=== PATIENT | female | born 1985 | race African-American/Black ===

== ENCOUNTER 2021-05-19 11:31 | Outpatient (REF) | payer OTHER, SELFPAY ==
[2021-05-19 13:57] LABS: Hemoglobin 13.6 g/dl (12.0-16.0); Mean Corpuscular HGB Conc 33.2 g/dl (31.0-35.0); Mean Corpuscular Hemoglobin 31.5 pg (27.0-33.0); Mean Corpuscular Volume 94.9 fL (80-98); Mean Platelet Volume 10.3 fL (9.4-12.3); Platelet Count 227 X10*3/uL (160-400); Red Blood Count 4.32 X10*6/uL (4.20-5.50); Red Cell Distribution Width 12.5 % (11.0-16.0); White Blood Count 3.8 X10*3/uL (4.8-10.8)
[2021-05-19 14:13] LABS: Alanine Aminotransferase 13 U/L (0-31); Alkaline Phosphatase 43 U/L (39-117); Anion Gap 11 (12-20); Aspartate Amino Transferase 14 U/L (5-31); Bilirubin Total 0.3 mg/dL (0.0-1.0); Blood Urea Nitrogen 7 mg/dL (9-16); Calcium 9.1 mg/dL (8.4-10.2); Carbon Dioxide 27 mmol/L (22-29); Chloride 106 mmol/L (96-108); Cholesterol 213 mg/dL; Estimated Glomerular Filt Rate > 60; Glucose Random 74 mg/dL (60-115); HDL Cholesterol 62 mg/dL; Iron 72 mcg/dL (30-160); LDL Cholesterol Calculated 136 mg/dl; Percent Iron Saturation 27 % (15-50); Potassium 4.5 mmol/L (3.3-5.1); Sodium 139 mmol/L (135-145); Total Iron Binding Capacity 269 mcg/dL (228-428); Total Protein 7.3 g/dL (6.5-8.0); Triglycerides 75 mg/dL; Unsaturated Iron Binding 197 ug/dL
[2021-05-19 14:35] LABS: TSH reflex Free T4 0.41 uIU/mL (0.32-4.0)
== END 2021-05-19 11:32 | disposition home or self-care (01) ==
LOC: HO.HMGCLDS 11:31
PROVIDERS: PCP Internal Medicine; Visit Provider Internal Medicine
DX: Z00.00 Encounter for general adult medical examination without abnormal findings (principal)
CPT/HCPCS: 36415; 80053; 80061; 83540; 84443; 85027

== ENCOUNTER 2021-08-25 13:10 | Outpatient (REF) | payer OTHER, SELFPAY ==
--- NOTE | ~2021-08-25 | XR_ITS ---
EXAMINATION: XR HAND, LEFT CLINICAL INFORMATION: Pain COMPARISON: None TECHNIQUE: PA, lateral, and oblique views of the left hand. FINDINGS: Bone alignment is normal. No fracture or dislocation is seen. Joint spaces are normal. There is focal soft tissue swelling over the dorsal hand at the level of the LONG-TERM joints. Soft tissues are otherwise normal. XR/XR hand LT min 3V IMPRESSION: Dorsal soft tissue swelling otherwise unremarkable exam.
== END 2021-08-25 13:11 | disposition home or self-care (01) ==
LOC: HO.HOSX 13:10
PROVIDERS: PCP Internal Medicine; Visit Provider Orthopaedic Surgery
DX: M67.432 Ganglion, left wrist (principal)
CPT/HCPCS: 73130; 99202

== ENCOUNTER 2021-09-07 07:49 | Day surgery (SDC) | payer OTHER, SELFPAY ==
--- NOTE | 2021-09-04 09:13 | HO.ANESPROP2 ---
Documented by User: Elena Dunham NP 09/04/21 09:14 HPI - Anesthesia Eval Consult details Narrative: 36yo F for Left Excision wrist Ganglion and excision of metacarpal boss PMFSH Active Problems Active Problems: All Active Problems (Updated 07/23/21 @ 11:21 by Kiera Guzman MD) Ganglion cyst of dorsum of left wrist (Acute) Normal Pap smear (Acute) Annual physical exam (Acute) Past Medical History Medical History Annual physical exam Carpal tunnel syndrome of right wrist Ganglion cyst of dorsum of left wrist Normal Pap smear Family History Family History Father Hypertension Mother Aneurysm Hypertension Surgical History Surgical History History of surgical removal of ganglion cyst Social History Social History (Updated 08/25/21 @ 13:31 by Renae Arenas) Housing: House Alcohol intake: never Patient Tobacco Use Status: Never used Tobacco e-Cigarette/Vaping Use: Never Used Second Hand Smoke Exposure: No Use of substances other than those prescribed or required for medical reasons: No Cultural Healthcare Practices: refusing blood products Are you DNR?: No Advance Directives: Yes Advance Directives on File: Yes Advance Directives Date on File: 09/07/21 Recently lost weight without trying: No Nutrition Risks: No Nutritional Risk service: No Current occupational status: employed Current occupation: rt hand Meds Allergies Allergy/AdvReac Type Severity Reaction Status Date / Time cyanocobalamin (vitamin B12) Allergy hives Verified 08/25/21 13:31 oxycodone Allergy shaking Verified 08/25/21 13:31 hives palpitation Home Medications Medication Instructions Recorded Confirmed Last Taken Type No Known Home Meds 05/19/21 05/19/21 Unknown History Exam Exam Date and Time: September 04, 2021 0913 Pertinent Lab Results Pertinent Lab Results: Laboratory Tests 05/19/21 05/19/21 11:40 11:40 WBC 3.8 L Hgb 13.6 Hct 41.0 Plt Count 227 Sodium 139 Potassium 4.5 Chloride 106 Carbon Dioxide 27 BUN 7 L Creatinine 0.82 Assessment and Plan Assessment Anesthesia Assessment: Chart Reviewed Documented by User: Margy Interiano MD 09/07/21 09:33 PMF Active Problems Active Problems: All Active Problems (Updated 07/23/21 @ 11:21 by Kiera Guzman MD) Ganglion cyst of dorsum of left wrist (Acute) Normal Pap smear (Acute) Annual physical exam (Acute) Neck injury about 2 weeks ago- still a little sore. No problems with extension Past Medical History Medical History Annual physical exam Carpal tunnel syndrome of right wrist Ganglion cyst of dorsum of left wrist Normal Pap smear Family History Family History Father Hypertension Mother Aneurysm Hypertension Family history of problems with anesthesia: No Surgical History Surgical History History of surgical removal of ganglion cyst History of Problems with Anesthesia: No Social History Social History (Updated 08/25/21 @ 13:31 by Renae Arenas) Housing: House Alcohol intake: never Patient Tobacco Use Status: Never used Tobacco e-Cigarette/Vaping Use: Never Used Second Hand Smoke Exposure: No Use of substances other than those prescribed or required for medical reasons: No Cultural Healthcare Practices: refusing blood products Are you DNR?: No Advance Directives: Yes Advance Directives on File: Yes Advance Directives Date on File: 09/07/21 Recently lost weight without trying: No Nutrition Risks: No Nutritional Risk service: No Current occupational status: employed Current occupation: rt hand Meds Allergies Allergy/AdvReac Type Severity Reaction Status Date / Time cyanocobalamin (vitamin B12) Allergy hives Verified 08/25/21 13:31 oxycodone Allergy shaking Verified 08/25/21 13:31 hives palpitation Home Medications Medication Instructions Recorded Confirmed Last Taken Type No Known Home Meds 05/19/21 05/19/21 Unknown History Exam Height,Weight and Vital Signs: Height 5 ft 2 in Weight 61.689 kg Vital Signs Temp Pulse Resp BP Pulse Ox 09/07/21 08:14 97.4 F 63 16 146/87 H 98 Pertinent Lab Results Pertinent Lab Results: Laboratory Tests 05/19/21 05/19/21 11:40 11:40 WBC 3.8 L Hgb 13.6 Hct 41.0 Plt Count 227 Sodium 139 Potassium 4.5 Chloride 106 Carbon Dioxide 27 BUN 7 L Creatinine 0.82 Lab Results 09/07/21 Range/Units 08:01 Urine Test NEGATIVE (NEGATIVE) Airway Mallampati Class: II TM Dist: >3cm Neck ROM: Full Heart: RRR Lungs: CTAB Assessment and Plan Assessment Anesthesia Assessment: Anesthesia Plan Discussed Final Anesthetic Review Family History of Problems with Anesthesia: No History of Problems with Anesthesia: No NPO: Yes ASA Class: I Final Preanesthetic Review: No Changes in Pt Med Stat, Meds/Allgs Chart Reviewed, Consent Obtained/Reviewed and Anes Risks/Benef Reviewed Patient Risk: Low Procedure Risk: Low Anesthetic Plan Anesthetic Plan: GA Disposition: Standard PACU
[2021-09-07] VITALS (8 sets, daily range): BP systolic 134–153; BP diastolic 70–87; PULSE 56–82; RESP 16; TEMP 36.2–36.3; O2SAT 98–100; BMI 24.8
[2021-09-07 08:17] LABS: UPreg QC Valid YES; Urine Pregnancy NEGATIVE (NEGATIVE)
[2021-09-07] MEDS: Lactated Ringers 1,000 ML 100 ML IVCONT (08:27)
--- NOTE | 2021-09-07 09:35 | MHC.SHP ---
Pre-Procedural Eval Section A Date of Service: 09/07/21 The patient is an INPATIENT: No Changes since office visit: No Cold of Flu in the past 2 weeks, No New Medical Problems, No Changes in Medication and No Patient answered all questions The History & Physical has been completed within 30 days and I have reviewed it.: Yes Section B Chief Complaint: ganglion Allergies: Allergies Allergy/AdvReac Type Severity Reaction Status Date / Time cyanocobalamin (vitamin B12) Allergy hives Verified 08/25/21 13:31 oxycodone Allergy shaking Verified 08/25/21 13:31 hives palpitation Plan I have reviewed the history and physical and performed a pertinent physical examination on my patient. No changes have occurred unless specified.
--- NOTE | 2021-09-07 09:36 | W.PM.OPN ---
Operative Note Operative Note Date of Service: 09/07/21 Narrative: Operative Note Narrative: Preop diagnosis: 1. Left recurrent dorsal wrist ganglion 2. Left 3rd metacarpal boss Postop diagnosis: Same Procedure: 1. Left dorsal wrist ganglion excisional biopsy 2. Excision 3rd metacarpal boss from dorsal base of the 3rd metacarpal Surgeon: Traci Reis MD Anesthesia: Mac Findings: Left dorsal wrist ganglion approximately 1 cm in diameter, filled with clear viscous fluid consistent with a ganglion. The ganglion was sitting atop of the 3rd metacarpal boss after excision of the ganglion, the EDC tendon to the index finger was noted to be passing over the 3rd metacarpal boss. Tourniquet time: 20 minutes EBL: 5.0 ml Specimen: Left dorsal wrist ganglion Drains: None Complications: None Disposition: Brought to the recovery room in stable condition Plan: Follow-up in 10-14 days for wound check, suture removal and to check pathology Indications: The patient is a 36 year old woman with a left recurrent dorsal wrist ganglion and a 3rd metacarpal boss that has been unresponsive to nonoperative management. The risks and benefits of operative treatment, including but not limited to risk of damage to blood vessels, nerves, tendons, infection, recurrence, persistent pain or numbness, or need for further surgery were discussed with the patient and they wished to proceed with surgery. Procedure: Once consent was obtained patient was brought back to the operating suite and placed in the operating table in a supine position. Perioperative antibiotics and anesthesia was administered by the anesthesia team. A tourniquet was applied to the proximal aspect of the left upper extremity and the limb was prepped and draped in a standard surgical fashion. The limb was elevated exsanguinated with Esmarch bandage and the tourniquet inflated to 250 mm of mercury for a total tourniquet time of 20 minutes. A 2 cm longitudinal incision was made over the dorsal aspect of the left 2nd/3rd CMC joint in line with the previous incision and centered over the dorsal wrist ganglion. Ganglion was located directly over the left 3rd metacarpal boss The incision was made with a #15 blade through the skin to the subcutaneous tissues. Tenotomy scissors were then used to carefully dissect down through the subcutaneous layer to the dorsal wrist ganglion. It measured approximately 1.0 cm in diameter , was situated directly on top of the 3rd metacarpal boss and was filled with clear viscous fluid consistent with a ganglion. The ECR be tendon was carefully retracted radially, and the ganglion was mobilized from the surrounding soft tissues using tenotomy and iris scissors. The ganglion was cut free and removed to the back table to be sent for histopathologic review. At this point the 3rd metacarpal boss was evaluated. The EDC tendon to the index finger was noted to be passing directly over the 3rd metacarpal boss. I then made a longitudinal incision in the dorsal ligament 0 capsular layer. This allowed me to then remove the bony prominence using a rongeur. Once satisfied with the improvement to the bony prominence the wound was irrigated with normal saline and I closed the dorsal capsuloligamentous later with some 4-0 Vicryl. At this point the tourniquet was deflated and hemostasis obtained with a brief period of local pressure and monopolar electrocautery. Wound was irrigated with normal saline. The subcutaneous layer was closed with some 4-0 Vicryl suture, and the skin edges were reapproximated a running 4-0 Monocryl subcuticular closure to reduce likelihood of keloid scar, noted from previous incision. Steri-Strips and Mastisol were applied. The wound was infiltrated with some 1% lidocaine with epinephrine for postop pain control and a sterile dressing was applied. The patient appears to have tolerated the procedure well and with no complications. All digits were well vascularized conclusion of the case.
== END 2021-09-07 12:18 ==
LOC: HO.SSS 07:50
PROVIDERS: Nurse Practitioner; PCP Internal Medicine; Visit Provider Orthopaedic Surgery
PROC: (CPT 25112; principal; 2021-09-07 09:10)
DX: M67.432 Ganglion, left wrist (principal); M24.142 Other articular cartilage disorders, left hand
CPT/HCPCS: 25112; 26230; 81025; 88304; J0690; J1100; J1885; J2250; J2405; J3010

== ENCOUNTER → 2021-09-16 15:07 | Outpatient (BNVA) | payer OTHER, SELFPAY | PROVIDERS: Visit Provider Orthopaedic Surgery | DX: M67.432 Ganglion, left wrist (principal); M25.732 Osteophyte, left wrist | CPT/HCPCS: 99212 ==

== ENCOUNTER → 2021-10-28 13:50 | Outpatient (BNVA) | payer OTHER, SELFPAY | PROVIDERS: PCP Internal Medicine; Visit Provider Orthopaedic Surgery | DX: M67.432 Ganglion, left wrist (principal); M25.732 Osteophyte, left wrist | CPT/HCPCS: 99212 ==

== ENCOUNTER → 2021-12-09 15:18 | Outpatient (BNVA) | payer OTHER, SELFPAY | PROVIDERS: PCP Internal Medicine; Referring Provider Internal Medicine; Visit Provider Surgery | DX: K40.90 Unilateral inguinal hernia, without obstruction or gangrene, not specified as recurrent (principal) | CPT/HCPCS: 99202 ==

== ENCOUNTER 2022-01-29 09:31 | Day surgery (SDC) | payer OTHER, SELFPAY ==
[2022-01-25 10:48] VITALS: BMI 24.8
--- NOTE | 2022-01-27 14:46 | P.CONAN_ITS ---
Documented by User: Elena Dunham NP 01/27/22 14:46 HPI - Anesthesia Eval Consult details Narrative: 37yo F for Left Hernia Repair Inguinal PMFSH Active Problems Active Problems: All Active Problems (Updated 01/25/22 @ 10:43 by Re Vaz RN) Carpal boss of left wrist (Acute) Inguinal hernia (Acute) Left inguinal hernia (Acute) Ganglion cyst of dorsum of left wrist (Acute) Normal Pap smear (Acute) Annual physical exam (Acute) Past Medical History Medical History (Updated 01/25/22 @ 10:43 by Re Vaz RN) Annual physical exam Carpal tunnel syndrome of right wrist Left inguinal hernia Normal Pap smear Family History Family History Father Hypertension Mother Aneurysm Hypertension Family history of problems with anesthesia: No Surgical History Surgical History (Updated 01/25/22 @ 10:43 by Re Vaz RN) History of surgical removal of ganglion cyst History of Problems with Anesthesia: No Social History Social History Housing: House Alcohol intake: never Patient Tobacco Use Status: Never used Tobacco e-Cigarette/Vaping Use: Never Used Second Hand Smoke Exposure: No Use of substances other than those prescribed or required for medical reasons: No Are you DNR?: No Advance Directives: Yes Advance Directives Information Provided: Yes Advance Directives on File: Yes Advance Directives Date on File: 09/07/21 Recently lost weight without trying: No Eating poorly because of decreased appetite: No Nutrition Risks: No Nutritional Risk service: No Current occupational status: employed Current occupation: rt hand Meds Allergies Allergy/AdvReac Type Severity Reaction Status Date / Time cyanocobalamin (vitamin B12) Allergy hives Verified 12/09/21 15:25 oxycodone Allergy shaking/hiv Verified 01/25/22 10:44 es/palpitat ions Exam Exam Date and Time: January 27, 2022 1446 Height,Weight and Vital Signs: Height 5 ft 2 in Weight 61.689 kg Assessment and Plan Assessment Anesthesia Assessment: Chart Reviewed Final Anesthetic Review Family History of Problems with Anesthesia: No History of Problems with Anesthesia: No Documented by User: Eagle Prasad MD 01/29/22 11:11 [facility] Past Medical History Medical History (Updated 01/25/22 @ 10:43 by Re Vaz, RN) Annual physical exam Carpal tunnel syndrome of right wrist Left inguinal hernia Normal Pap smear Patient : No Family History Family History Father Hypertension Mother Aneurysm Hypertension Surgical History Surgical History (Updated 01/25/22 @ 10:43 by Re Vaz RN) History of surgical removal of ganglion cyst History of Problems with Anesthesia: Yes (PONV) Social History Social History Housing: House Alcohol intake: never Patient Tobacco Use Status: Never used Tobacco e-Cigarette/Vaping Use: Never Used Second Hand Smoke Exposure: No Use of substances other than those prescribed or required for medical reasons: No Are you DNR?: No Advance Directives: Yes Advance Directives Information Provided: Yes Advance Directives on File: Yes Advance Directives Date on File: 09/07/21 Recently lost weight without trying: No Eating poorly because of decreased appetite: No Nutrition Risks: No Nutritional Risk service: No Current occupational status: employed Current occupation: rt hand Meds Allergies Allergy/AdvReac Type Severity Reaction Status Date / Time cyanocobalamin (vitamin B12) Allergy hives Verified 12/09/21 15:25 oxycodone Allergy shaking/hiv Verified 01/25/22 10:44 es/palpitat ions Exam Airway Mallampati Class: I TM Dist: >3cm Neck ROM: Full Loose/Missing/Broken Teeth: No Heart: ok Lungs: ok Assessment and Plan Final Anesthetic Review History of Problems with Anesthesia: Yes (PONV) NPO: Yes ASA Class: I Final Preanesthetic Review: No Changes in Pt Med Stat, Meds/Allgs Chart Reviewed, Consent Obtained/Reviewed and Anes Risks/Benef Reviewed Patient Risk: Low Procedure Risk: Low Anesthetic Plan Anesthetic Plan: GA and Agree w/ Assess. and Plan Disposition: Standard PACU
[2022-01-29] VITALS (9 sets, daily range): BP systolic 126–150; BP diastolic 75–90; PULSE 56–86; RESP 16–18; TEMP 36.1–36.6; O2SAT 97–100
[2022-01-29 09:53] LABS: UPreg QC Valid YES; Urine Pregnancy NEGATIVE (NEGATIVE)
[2022-01-29] MEDS: Lactated Ringers 1,000 ML 100 ML IVCONT (09:57)
--- NOTE | 2022-01-29 10:43 | MHC.SHP ---
Pre-Procedural Eval Section A Date of Service: 01/29/22 Section B Chief Complaint: Left Inguinal Hernia Details of Present Illness: Has a reducible left inguinal mass consistent with a hernia Relevant Family History (Specify if Yes): No Relevant Social History: None Present Medications: see Short Stay Collaborative assessment Medical History: No relevant PMH History of Previous Operations: No relevant previous surgery Allergies: Allergies Allergy/AdvReac Type Severity Reaction Status Date / Time cyanocobalamin (vitamin B12) Allergy hives Verified 12/09/21 15:25 oxycodone Allergy shaking/hiv Verified 01/25/22 10:44 es/palpitat ions Review of Systems Sugical H&P ROS: Negative: Constitution, Cardiovascular, Respiratory, Neurological, Psychiatric, Hem-Onc, Allergic/Immunologic, Gastrointestinal, Genitourinary, Musculoskeletal, Integumentary, Endocrine and Eyes/Ears/Nose/Throat Exam Surgical H&P Exam: Normal: HEENT, Normal: Heart, Normal: Lungs, Normal: Extremities, Normal: Abdomen, Normal: Skin and Normal: Neurological Exam Comment: Left inguinal hernia Plan Diagnosis/Plan: Unchanged I have reviewed the history and physical and performed a pertinent physical examination on my patient. No changes have occurred unless specified.
--- NOTE | 2022-01-29 11:57 | W.PM.OPN ---
Operative Note Operative Note Date of Service: 01/29/22 Narrative: Preop diagnosis: right inguinal hernia Postop diagnosis: right inguinal hernia, direct Procedure: repair of right inguinal hernia, with Prolene mesh Surgeon: Alexi Duarte MD First asst: COLBY Reyes The patient is a 37F with a reducible mass on the right groin c/w an inguinal hernia. She understood the technique of repair with mesh and was aware of the risks, benefits and alternatives. She was brought to the OR and placed supine on the table under general anesthesia via LMA. The right groin was prepped and draped in the usual sterile fashion. A surgical timeout was done. The patient received Cefazolin 2 g IV preop. I infiltrated the planned line of incision with Lidocaine 1%. I then made a short incision on the skin along an imaginary line from the anterior superioriliac spine to the pubic ramus using a blade 15. This was carried down with electrocautery through the full thickness of the skin and subcutaneous fat down to the aponeurosis. The external ring was identified with blunt dissection. I made an incision on the external ring to enter the inguinalcanal. I applied hemostats to the edges of the divided aponeurosis. I bluntly dissected the underside of the aponeurosis to create a pocket for the mesh. I visualized the hernia sac on the floor of the canal consistent with a direct hernia.I bluntly seprated this from the round ligament which was divided with electrocautery. The sac was reduced through the floor. I then positioned a flat Prolene mesh on the floor. This was secured with Prolene 2-0 sutures to the pubic ramus inferomedially, the shlelving edge of the inguinal ligament laterally, and the internal oblique superiorly and medially. I irrigated and suctioned. Once hemostasis was confirmed, I reapoosed the external oblique aponeurosis with a running dexon 2-0 stitch. The subcutaneous layer was reapposed with Dexon 3-0 sutures. Skin closure was acheieved with Dexon 4-0 subcuticular running sutures. The area was infiltrated with Marcaine .5% for postop analgesia. Steristrips and dressings were applied and the procedure was completed. The patient tolerated the procedure well. Initial and final counts of sponges and instruments were correct., Estimated blood loss was 20 cc. The patient was extubated without difficulty and transferred to the recover room with stable vital signs.
[2022-01-29] MEDS: fentaNYL citrate/PF 100 MCG/2 ML VIAL 25 MCG IVPUSH ×3 (12:25→12:35)
[2022-01-29] MEDS: HYDROcodone Bit/Acetam 5/325 TABLET 1 TAB PO (12:30)
== END 2022-01-29 13:48 | disposition home or self-care (01) ==
PROVIDERS: Nurse Practitioner; PCP Internal Medicine; Visit Provider Surgery
PROC: (CPT 49505; principal; 2022-01-29 11:10)
DX: K40.90 Unilateral inguinal hernia, without obstruction or gangrene, not specified as recurrent (principal); Z88.8 Allergy status to other drugs, medicaments and biological substances
CPT/HCPCS: 49505; 81025; C1781; J0690; J1100; J1885; J2250; J2405; J3010

== ENCOUNTER → 2022-02-11 09:19 | Outpatient (BNVA) | payer OTHER, SELFPAY | PROVIDERS: PCP Internal Medicine; Referring Provider Internal Medicine; Visit Provider Surgery | DX: K40.90 Unilateral inguinal hernia, without obstruction or gangrene, not specified as recurrent (principal); Z88.6 Allergy status to analgesic agent; Z88.8 Allergy status to other drugs, medicaments and biological substances; Z79.899 Other long term (current) drug therapy | CPT/HCPCS: 99212 ==

== ENCOUNTER 2022-06-24 11:03 | Outpatient (REF) | payer OTHER, SELFPAY ==
[2022-06-24 13:41] LABS: MANUAL DIFF FLAG NO
[2022-06-24 13:50] LABS: Basophils Percent Auto 1.2 % (0-2); Eosinophils Absolute Auto 0.1 X10*3/uL (0.0-0.4); Eosinophils Percent Auto 1.5 % (0-4); Hemoglobin 14.2 g/dl (12.0-16.0); Imm Gran Abs Auto 0.01 X10*3/uL (0.00-0.03); Imm Gran Pct Auto 0.3 % (0.0-0.4); Lymphocytes Absolute Auto 1.8 X10*3/uL (1.2-4.9); Lymphocytes Percent Auto 51.6 % (20-40); Mean Corpuscular HGB Conc 33.8 g/dl (31.0-35.0); Mean Corpuscular Hemoglobin 32.1 pg (27.0-33.0); Mean Platelet Volume 10.3 fL (9.4-12.3); Monocytes Absolute Auto 0.4 X10*3/uL (0.1-1.2); Monocytes Percent Auto 10.6 % (2-11); Neutrophils Absolute Auto 1.2 x10*3/uL (2.0-8.3); Neutrophils Percent Auto 34.8 % (45-73); Platelet Count 222 X10*3/uL (160-400); Red Blood Count 4.42 X10*6/uL (4.20-5.50); Red Cell Distribution Width 11.9 % (11.0-16.0); White Blood Count 3.4 X10*3/uL (4.8-10.8)
[2022-06-24 14:17] LABS: Alanine Aminotransferase 12 U/L (0-31); Albumin Level 4.4 g/dL (3.5-5.0); Alkaline Phosphatase 38 U/L (39-117); Anion Gap 13 (12-20); Aspartate Amino Transferase 15 U/L (5-31); Bilirubin Total 0.5 mg/dL (0.0-1.0); Blood Urea Nitrogen 9 mg/dL (9-16); Calcium 9.3 mg/dL (8.4-10.2); Carbon Dioxide 26 mmol/L (22-29); Chloride 104 mmol/L (96-108); Cholesterol 239 mg/dL; Estimated Glomerular Filt Rate > 60; Glucose Fasting 88 mg/dL (60-99); HDL Cholesterol 64 mg/dL; LDL Cholesterol Calculated 165 mg/dl; Potassium 4.7 mmol/L (3.3-5.1); Sodium 138 mmol/L (135-145); Total Protein 7.8 g/dL (6.5-8.0); Triglycerides 54 mg/dL
[2022-06-24 14:32] LABS: TSH reflex Free T4 0.52 uIU/mL (0.32-4.0)
== END 2022-06-24 11:04 | disposition home or self-care (01) ==
LOC: HO.HMGCLDS 11:03
PROVIDERS: PCP Internal Medicine; Visit Provider Internal Medicine
DX: Z00.00 Encounter for general adult medical examination without abnormal findings (principal)
CPT/HCPCS: 36415; 80053; 80061; 84443; 85025

== ENCOUNTER 2022-06-29 10:30 | Outpatient (REF) | payer OTHER, SELFPAY ==
--- NOTE | ~2022-06-29 | US_ITS ---
EXAMINATION: US THYROID CLINICAL INFORMATION: Nontoxic goiter, unspecified. COMPARISON: None. TECHNIQUE: Linear transducer grayscale and color Doppler examination with attention to the region of the thyroid. FINDINGS: SIZE: Measurements of the thyroid lobes and nodules are given in sagittal, anteroposterior and transverse dimensions respectively. Right Thyroid Lobe: 5.9 x 1.9 x 2.5 cm, volume 14.7 mL. Parenchyma: The gland echotexture is homogeneous. Thyroid vascularity is mildly increased. Left Thyroid Lobe: 5.8 x 1.5 x 1.8 cm, volume 8.2 mL. Parenchyma: The gland echotexture is homogeneous. Thyroid vascularity is normal. Isthmus: 0.4 cm in maximum AP dimension. Estimated total number of nodules greater than or equal to 1 cm: 3. Rn Radiation nodules are described as follows: 1. Location: Right superior. Size: 1.9 x 1.6 x 1.5 cm, volume 2.38 mL. Nodule characteristics: Composition: Mixed cystic and solid (1). Echogenicity: Isoechoic (1). Shape: Taller than wide (3). Margins: Smooth (0). Echogenic Foci: None (0). ACR TI-RADS total points: 5. ACR TI-RADS category: 4. 2. Location: Right mid. Size: 2.3 x 1.7 x 3.0 cm, volume 3.96 mL. Nodule characteristics: Composition: Solid/almost completely solid (2). Echogenicity: Hypoechoic (2). Shape: Not taller than wide (0). Margins: Smooth (0). Echogenic Foci: None (0). ACR TI-RADS total points: 4. ACR TI-RADS category: 4. 3. Location: Right mid lateral. Size: 1.5 x 0.4 x 0.8 cm, volume 0.29 mL. Nodule characteristics: Composition: Solid/almost completely solid (2). Echogenicity: Isoechoic (1). Shape: Not taller than wide (0). Margins: Ill-defined (0). Echogenic Foci: None (0). ACR TI-RADS total points: 3. ACR TI-RADS category: 3. NODES: No lymphadenopathy is seen in the tissue surrounding the thyroid gland. US/US thyroid IMPRESSION: Enlarged thyroid gland right greater than left with hypervascular right lobe. There are several nodules greater than 1 cm in the right lobe. The largest midpole measuring 3.0 cm and appendix and solid. The second midpole nodule is also solid and complex measuring 1.5 cm. These are close to each other. Recommend biopsy as per ACR recommendation. ACR TI-RADS RECOMMENDATION REFERENCE: Ultrasound-guided fine-needle aspiration, followup ultrasound, no further follow up. * TR1 (0 point) and TR 2 (2 points): No FNA or follow up * TR3 (3 points): FNA if more than or equal to 2.5 cm in maximum dimension, followup ultrasound in 1, 3 and 5 years if 1.5 to 2.4 cm in maximum dimension. * TR4 (4-6 points): FNA if more than or equal to 1.5 cm in maximum dimension, followup ultrasound in 1, 2, 3 and 5 years if 1 to 1.4 cm in maximum dimension. * TR5 (more than or equal to 7 points): FNA if more than or equal to 1 cm in maximum dimension, followup ultrasound every year for 5 years if 0.5 to 0.9 cm in maximum dimension. * TR3, TR4 or TR5 nodules that are below the size threshold for follow up receive no follow up.
== END 2022-06-29 10:31 | disposition home or self-care (01) ==
LOC: HO.HMGCX 10:30
PROVIDERS: PCP Internal Medicine; Visit Provider Internal Medicine
DX: E04.9 Nontoxic goiter, unspecified (principal)
CPT/HCPCS: 76536

== ENCOUNTER → 2022-07-27 09:10 | Outpatient (BNVA) | payer OTHER, SELFPAY | PROVIDERS: PCP Internal Medicine; Visit Provider Internal Medicine | DX: E04.2 Nontoxic multinodular goiter (principal) | CPT/HCPCS: 99202 ==

== ENCOUNTER 2023-01-27 10:12 | Outpatient (REF) | payer OTHER, SELFPAY ==
[2023-01-27] MEDS: Lidocaine HCl 1 % MPF 5 ML VIAL 1 ML SUBCUT (12:02)
== END 2023-01-27 10:13 | disposition home or self-care (01) ==
LOC: HO.US 10:12
PROVIDERS: PCP Internal Medicine; Visit Provider Internal Medicine
DX: E04.2 Nontoxic multinodular goiter (principal)
CPT/HCPCS: 10005; 88172; 88173; 88177; 88305

== ENCOUNTER 2023-02-08 09:10 | Outpatient (REF) | payer OTHER, SELFPAY ==
[2023-02-08 12:38] LABS: Cholesterol 220 mg/dL; HDL Cholesterol 55 mg/dL; LDL Cholesterol Calculated 150 mg/dl; Triglycerides 76 mg/dL
[2023-02-08 12:39] LABS: Free T4 (Free Thyroxine) 0.98 ng/dL (0.71-1.85)
== END 2023-02-08 09:11 | disposition home or self-care (01) ==
LOC: HO.HMGCLDS 09:10
PROVIDERS: PCP Internal Medicine; Visit Provider Internal Medicine
DX: E04.2 Nontoxic multinodular goiter (principal); E78.5 Hyperlipidemia, unspecified
CPT/HCPCS: 36415; 80061; 84439; 84443

== ENCOUNTER → 2023-02-10 13:46 | Outpatient (BNVA) | payer OTHER, SELFPAY | PROVIDERS: PCP Internal Medicine; Visit Provider Internal Medicine | DX: E04.2 Nontoxic multinodular goiter (principal) | CPT/HCPCS: 99212 ==

== ENCOUNTER 2023-11-24 13:05 | Outpatient (REF) | payer OTHER, SELFPAY ==
[2023-11-24 16:13] LABS: MANUAL DIFF FLAG NO
[2023-11-24 16:20] LABS: Basophils Absolute Auto 0.1 X10*3/uL (0.0-0.2); Basophils Percent Auto 1.3 % (0-2); Hemoglobin 14.3 g/dl (12.0-16.0); Lymphocytes Absolute Auto 1.7 X10*3/uL (1.2-4.9); Mean Corpuscular Hemoglobin 32.7 pg (27.0-33.0); Mean Corpuscular Volume 96.1 fL (80.0-98.0); Mean Platelet Volume 10.7 fL (9.4-12.3); Monocytes Absolute Auto 0.4 X10*3/uL (0.1-1.2); Monocytes Percent Auto 10.1 % (2-11); Neutrophils Absolute Auto 1.7 x10*3/uL (2.0-8.3); Neutrophils Percent Auto 44.6 % (45-73); Platelet Count 218 X10*3/uL (160-400); Red Blood Count 4.37 X10*6/uL (4.20-5.50); Red Cell Distribution Width 12.5 % (11.0-16.0); White Blood Count 3.9 X10*3/uL (4.8-10.8)
[2023-11-24 17:28] LABS: Alanine Aminotransferase 10 U/L (0-31); Albumin Level 4.3 g/dL (3.5-5.0); Alkaline Phosphatase 37 U/L (39-117); Anion Gap 12 (12-20); Aspartate Amino Transferase 15 U/L (5-31); Bilirubin Total 0.5 mg/dL (0.0-1.0); Blood Urea Nitrogen 9 mg/dL (9-16); Calcium 9.4 mg/dL (8.4-10.2); Carbon Dioxide 26 mmol/L (22-29); Chloride 107 mmol/L (96-108); Cholesterol 219 mg/dL (<200); Estimated Glomerular Filt Rate > 60; Glucose Fasting 75 mg/dL (60-99); HDL Cholesterol 64 mg/dL (>40); LDL Cholesterol Calculated 144 mg/dL (<100); Potassium 4.3 mmol/L (3.3-5.1); Sodium 141 mmol/L (135-145); Total Protein 7.6 g/dL (6.5-8.0); Triglycerides 57 mg/dL (<150)
[2023-11-24 17:43] LABS: TSH reflex Free T4 0.36 uIU/mL (0.32-4.0)
== END 2023-11-24 13:06 | disposition home or self-care (01) ==
LOC: HO.HMGCLDS 13:05
PROVIDERS: PCP Internal Medicine; Visit Provider Internal Medicine
DX: Z00.00 Encounter for general adult medical examination without abnormal findings (principal); E04.2 Nontoxic multinodular goiter
CPT/HCPCS: 36415; 80053; 80061; 84443; 85025

== ENCOUNTER 2023-12-01 12:44 | Outpatient (AMB) | payer OTHER, SELFPAY ==
--- NOTE | 2023-12-01 13:12 | MHC.PC.OV ---
Vital Signs 12/01/23 13:13 Height 5 ft 2 in Weight 139 lb BMI 25.4 BP 122/74 Blood Pressure Location Lt brachial Position Sitting Pulse 62 Pulse Source Pulse Oximeter Pulse Oximetry (%) 98 Oxygen Delivery Method Room Air Intake Visit Reasons: PE. Intake Note: Pt is here today for PE. Allergies oxycodone Allergy (Verified 12/01/23 13:15) shaking/hives/palpitations Tobacco use date assessed: 12/01/23 Dental Screening Dental Screen Date: 12/01/23 Did you have a dental visit in the last 12 months?: Yes Did you have a dental problem in the last 6 months where you did not have access to dental care?: No Was dental information given to patient?: Patient has dentist HPI PE. HPI Details Patient presents for physical. She is moving to [place] next month [facility] Medical History (Updated 12/01/23 @ 15:48 by Kiera Guzman MD) Multinodular thyroid Left inguinal hernia Normal Pap smear Annual physical exam Carpal tunnel syndrome of right wrist Surgical History History of left inguinal hernia repair History of surgical removal of ganglion cyst Family History Father Hypertension Mother Aneurysm Hypertension Hypothyroidism Sister Hypothyroidism Social History Housing: House Alcohol intake: current Patient Tobacco Use Status: Never used Tobacco e-Cigarette/Vaping Use: Never Used Second Hand Smoke Exposure: No Advance Directives Date on File: 09/07/21 service: No Current occupational status: employed Current occupation: rt hand Cognitive needs: No Hearing needs: No Vision needs: No Questionnaire Thrive Questionnaire Date Thrive assessed: 05/20/22 I am a: Patient What is your living situation today?: I have a steady place to live Within the past 12 months, did the food you bought not last and you didn't have the money to get more?: Never true Within the past 12 months, did you worry whether your food would run out before you got money to buy more?: Never true THRIVE Score: 0 AUDIT C Alcohol Use Questionnaire (AUDIT-C) 1. How often do you have a drink containing alcohol?: 2-3 times a week 2. How many drinks containing alcohol do you have on a typical day when you are drinking?: 1 or 2 3. How often do you have six or more drinks on one occasion?: Never Total Score: 3 RIVER-7 AMB Questionnaire RIVER-7 Date RIVER - 7 assessed: 05/20/22 Feeling nervous, anxious, or on edge: 0 = Not at all Not being able to stop or control worryin = Not at all Worrying too much about different things: 1 = Several days Trouble relaxin = Not at all Being so restless that it is hard to sit still: 0 = Not at all Becoming easily annoyed or irritable: 1 = Several days Feeling afraid as if something awful might happen: 0 = Not at all Total RIVER-7 score (0-4 normal; 5-9 mild; 10-14 moderate; 15-21 severe): 2 Source: Developed by Drs. Aiden Garcia, Yenny Penny, Jeison Kirkpatrick and colleagues, with an educational darcie from [employer]. Review of Systems Const All systems reviewed & are unremarkable except as noted in HPI and below Reports no additional complaints Eyes Reports no additional complaints ENT Reports no additional complaints Card Reports no additional complaints Resp Reports no additional complaints GI Reports no additional complaints Physical exam (Primary Care) Vital Signs: Last Vital Signs Pulse 62 12/01/23 13:13 BP 122/74 12/01/23 13:13 Pulse Ox 98 12/01/23 13:13 Oxygen Delivery Method Room Air 12/01/23 13:13 BMI result Body Mass Index 25.4 Tobacco/Smoking Status: Tobacco use Status Tobacco use date assessed 12/01/23 12/01/23 13:18 Patient Tobacco Use Status Never used Tobacco 12/01/23 13:18 e-Cigarette/Vaping Use Never Used 12/01/23 13:12 Thrive Assessment: Date of Thrive Assessment Date Thrive assessed 05/20/22 12/01/23 13:12 Const General: no acute distress HENMT Face and sinus: Yes normal facial exam Throat: Yes posterior oropharynx normal Eyes General: appearance normal, both eyes and all related structures Neck Neck: Yes supple Thyroid: diffusely enlarged Resp Effort & Inspection: normal respiratory effort Auscultation: clear to auscultation bilaterally Cardio Rhythm: regular rhythm Heart sounds: S1 normal heart sound present and S2 normal heart sound present GI Inspection: Yes normal to inspection Palpation (GI): Soft to palpation Percussion: Yes normal to percussion Auscultation: normal bowel sounds Assessment and Plan Assessment & Plan (1) Multinodular thyroid: Comment: s/p biopsy and f/u endo Code(s): E04.2 - Nontoxic multinodular goiter (2) Annual physical exam: Code(s): Z00.00 - Encounter for general adult medical examination without abnormal findings Plan: Well-balanced diet regular physical activity discussed with the patient Coding Level of Care Code Est Pt Prev Care [id number](41015) Diagnoses Multinodular thyroid E04.2 Annual physical exam Z00.00
[2023-12-01 13:13] VITALS: BP 122/74; PULSE 62; O2SAT 98; BMI 25.4
== END 2023-12-01 15:48 | disposition home or self-care (01) ==
PROVIDERS: PCP Internal Medicine; Visit Provider Internal Medicine
DX: E04.2 Nontoxic multinodular goiter (principal); Z00.00 Encounter for general adult medical examination without abnormal findings
CPT/HCPCS: 99395

== ENCOUNTER 2023-12-01 15:04 | Outpatient (REF) | payer OTHER, SELFPAY ==
--- NOTE | ~2023-12-01 | US_ITS ---
EXAMINATION: US THYROID CLINICAL INFORMATION: Nontoxic multinodular goiter. COMPARISON: Ultrasound soft tissue head/neck thyroid dated 06/29/2022. TECHNIQUE: Linear transducer grayscale and color Doppler examination with attention to the region of the thyroid. FINDINGS: SIZE: Measurements of the thyroid lobes and nodules are given in sagittal, anteroposterior and transverse dimensions respectively. Right Thyroid Lobe: 6.0 x 1.9 x 2.3 cm, volume 13.7 mL. Previously 5.9 x 1.9 x 2.5 cm, volume 14.7 mL. Parenchyma: The gland echotexture is homogeneous. Thyroid vascularity is increased. Left Thyroid Lobe: 5.7 x 1.7 x 2.0 cm, volume 10.0 mL. Previously 5.8 x 1.5 x 1.8 cm, volume 8.2 mL. Parenchyma: The gland echotexture is homogeneous. Thyroid vascularity is increased. Isthmus: 0.35 cm in maximum AP dimension. Previously 0.40 cm. Estimated total number of nodules greater than or equal to 1 cm: 1. Parquetry Layer nodules are described as follows: 1. Location: Right mid. Size: 2.5 x 1.6 x 1.8 cm, volume 3.8 mL. Previously: 2.3 x 1.7 x 3.0 cm, volume 4.0 mL. Nodule characteristics: Composition: Solid (2). Echogenicity: Hypoechoic (2). Shape: Not taller than wide (0). Margins: Smooth (0). Echogenic Foci: None (0). ACR TI-RADS total points: 4 Previous: 4 ACR TI-RADS category: 4 Previous: 4 Significant change in size (>/= 20% in 2 dimensions and minimal increase of 2 mm or 50% or greater increase in volume): No Change in features: No Change in ACR TI-RADS risk category: No 2. Location: Left mid. Size: 0.4 x 0.3 x 0.4 cm, volume 0.02 mL. Previously: Not seen on the previous study. Nodule characteristics: Composition: Spongiform (0). Echogenicity: Anechoic (0). Shape: Not taller than wide (0). Margins: Smooth (0). Echogenic Foci: None (0). ACR TI-RADS total points: 0 ACR TI-RADS category: 1 3. Location: Left superior. Size: 0.8 x 0.4 x 0.7 cm, volume 0.1 mL. Previously: Not seen on the previous study. Nodule characteristics: Composition: Mixed cystic and solid (1). Echogenicity: Isoechoic (1). Shape: Not taller than wide (0). Margins: Smooth (0). Echogenic Foci: None (0). ACR TI-RADS total points: 2 ACR TI-RADS category: 2 NODES: No lymphadenopathy is seen in the tissue surrounding the thyroid gland. US/US thyroid IMPRESSION: 1. A 2.5 cm in maximal diameter right thyroid lobe TR 4 nodule meets ACR biopsy criteria. Please correspond with the ultrasound-guided biopsy pathology results dated 01/27/2023. This nodule demonstrates interim stability. 2. There is a mild goiter, right lobe greater than left.. 3. There is increased thyroid vascularity, which can be associated with thyroiditis. ACR TI-RADS RECOMMENDATION REFERENCE: Ultrasound-guided fine-needle aspiration, follow up ultrasound, no further followup. * TR1 (0 point) and TR2 (2 points): No FNA or followup * TR3 (3 points): FNA if more than or equal to 2.5 cm in maximum dimension, follow up ultrasound in 1, 3 and 5 years if 1.5 to 2.4 cm in maximum dimension. * TR4 (4-6 points): FNA if more than or equal to 1.5 cm in maximum dimension, follow up ultrasound in 1, 2, 3 and 5 years if 1 to 1.4 cm in maximum dimension. * TR5 (more than or equal to 7 points): FNA if more than or equal to 1 cm in maximum dimension, follow up ultrasound every year for 5 years if 0.5 to 0.9 cm in maximum dimension. * TR3, TR4 or TR5 nodules that are below the size threshold for follow up receive no followup.
== END 2023-12-01 15:05 | disposition home or self-care (01) ==
LOC: HO.HMGCX 15:04
PROVIDERS: PCP Internal Medicine; Visit Provider Internal Medicine Endocrinology, Diabetes & Metabolism
DX: E04.2 Nontoxic multinodular goiter (principal)
CPT/HCPCS: 76536